=== PATIENT | female | born 1955 | race Caucasian/White ===

== ENCOUNTER → 2021-02-27 14:12 | Outpatient (CLI) | payer MEDICARE, SELFPAY ==
--- NOTE | ~2021-02-27 | XR_ITS ---
EXAMINATION: XR sacrum coccyx min 2V DATE: 02/27/2021 15:37 INDICATION: Chronic right sacroiliac joint pain. TECHNIQUE: AP, angled AP and lateral views of the sacrum and coccyx were obtained. COMPARISON: None. FINDINGS: Alignment is normal. L5 segment is sacralized on the left with mild to moderate osteoarthritis at the articulation of its transverse process with the sacrum. Sacral arches are intact. No fractures. Mild bilateral sacroiliac osteoarthritis with mild nonuniform joint space narrowing. No erosions to sugge st an inflammatory sacroiliitis. Phleboliths in the pelvis. IMPRESSION: 1. Mild bilateral sacroiliac osteoarthritis. Reviewed, dictated and finalized at location A.
--- NOTE | ~2021-02-27 | XR_ITS ---
XR lumbar spine 2-3V 02/27/2021 15:37 Indication: Low back pain Procedure: 3 views lumbar spine Comparison: No prior studies for comparison. Findings: There is mild levoscoliosis. Vertebral body heights are maintained. No acute fracture or tr aumatic malalignment. There is mild disc narrowing at L4-5 and L5-S1. No evidence for spondylolisthes is. Sacral foramen are symmetric. Impression: 1: Mild lumbar spondylosis with levoscoliosis. Reviewed, dictated and finalized at location B. Impression: 1: Mild lumbar spondylosis with levoscoliosis.
== END ==
PROVIDERS: PCP Internal Medicine; Visit Provider Nurse Practitioner Adult Health
DX: M53.3 Sacrococcygeal disorders, not elsewhere classified (principal); M47.896 Other spondylosis, lumbar region
CPT/HCPCS: 72100; 72220